=== PATIENT | male | born 1990 | race American Indian/Alaskan Native ===

== ENCOUNTER 2017-04-13 00:55 | Emergency (ER) | payer BC, OTHER ==
--- NOTE | 2017-04-13 01:37 | C.PDOC ---
History Of Present Illness 26 yo male come in for evaluation of left middle finger pain over PIPJ with some swelling developed for past 1.5-2 months. Pt reports, pain is localized and worse on Left middle finger movement. Pt unable to recall injury, denies weakness, deformity, sensory or vascular deficits to painful hand. Ambulate to ED for evaluation, not in any apparent distress. Time Seen by Provider: 04/13/17 00:57 Chief Complaint (Nursing): Upper Extremity Problem/Injury History Per: Patient Onset/Duration Of Symptoms: Gradual Past Medical History Reviewed: Historical Data, Nursing Documentation, Vital Signs Vital Signs: Last Vital Signs Temp 99 F 04/13/17 01:17 Pulse 85 04/13/17 01:17 Resp 20 04/13/17 01:17 BP 117/65 04/13/17 01:17 Pulse Ox 99 04/13/17 01:44 - Medical History PMH: No Chronic Diseases Family History: States: Unknown Family Hx - Social History Hx Tobacco Use: No Hx Alcohol Use: Yes Hx Substance Use: No - Immunization History Hx Tetanus Toxoid Vaccination: No Hx Influenza Vaccination: No Hx Pneumococcal Vaccination: No Review Of Systems Except As Marked, All Systems Reviewed And Found Negative. Constitutional: Negative for: Fever, Chills Musculoskeletal: Positive for: Foot Pain (Left 3rd finger pain) Skin: Negative for: Rash, Bruising Neurological: Negative for: Weakness, Numbness Physical Exam - Physical Exam Appears: Well, Non-toxic, No Acute Distress Skin: Normal Color, Warm, No Rash, No Ecchymosis Extremity: Normal ROM (left hand), Tenderness (ove rleft 3rd PIPJ with mild diffuse edema left 3rd middle phalanx. No erythema, no palpable deformity.), Capillary Refill (less than 2sec to left hand), No Deformity Neurological/Psych: Oriented x3, Normal Speech, Normal Motor, Normal Sensation, Normal Reflexes ED Course And Treatment O2 Sat by Pulse Oximetry: 99 - Other Rad Left 3rd finger X-Ray: Interpreted by Me, Viewed By Me Interpretation: (-) acute fx or dislocation Progress Note: On re-eval, aferile, hemodynamicaly stable. left hand; exam c/w left middle finger arthralgia at PIPJ. No deformity. FAROM. Pt advised. ref. to f/u with Hand in 2-3 days for re-eval. rfeturn if any new changes. Disposition Counseled Patient/Family Regarding: Studies Performed, Diagnosis, Need For Followup - Disposition Referrals: [facility] at [facility] [Outside] Disposition: HOME/ ROUTINE Disposition Time: 01:44 Condition: STABLE Instructions: Finger Sprain (ED) Forms: [employer] (Gambian) - Clinical Impression Clinical Impression: Sprain, finger
[2017-04-13 02:29] VITALS: BP 110/75; PULSE 84; RESP 22; TEMP 98.6; O2SAT 98
--- NOTE | 2017-04-13 09:48 | RAD ---
PROCEDURE: Left middle finger radiographs. HISTORY: pain COMPARISON: None. TECHNIQUE: AP radiograph of the left hand, as well as spot oblique and lateral images of left middle finger were obtained. FINDINGS: LEFT MIDDLE FINGER: Left middle finger normal, without fracture of focal lesion. Remainder of the left hand (as seen on the AP view) is grossly unremarkable. JOINTS: Normal. SOFT TISSUES: Normal. OTHER FINDINGS: None. IMPRESSION: Normal left middle finger radiographs. If symptoms persist or occult fracture suspected clinically consider followup radiographs 5-10 days as most fractures should become radiographically evident this timeframe.
== END 2017-04-13 02:33 | disposition home or self-care (01) ==
LOC: C.ER 00:55
DX: S63.613A Unspecified sprain of left middle finger, initial encounter (principal); X58.XXXA Exposure to other specified factors, initial encounter

== ENCOUNTER 2017-05-27 09:44 | Emergency (ER) | payer BC, OTHER ==
[2017-05-27 09:56] VITALS: TEMP 97.9
--- NOTE | 2017-05-27 10:27 | C.PDOC ---
History Of Present Illness 26 y/o male, otherwise well, presents to the emergency department complaining of a sore throat and mild cough since Tuesday. No fevers, chills, or other complaints. HPI: Influenza Time Seen by Provider: 05/27/17 09:56 Chief Complaint: ENT Problem Chief Complaint (Provider): ENT Problem History Per: Patient Exam Limitations: no limitations Onset/Duration Of Symptoms: Days (x6) Past Medical History Reviewed: Historical Data, Nursing Documentation, Vital Signs Vital Signs: Last Vital Signs Temp 97.9 F 05/27/17 09:53 Pulse 88 05/27/17 09:53 Resp 16 05/27/17 09:53 BP 118/75 05/27/17 09:53 Pulse Ox 97 05/27/17 09:53 - Medical History PMH: No Chronic Diseases Surgical History: No Surg Hx Family History: States: Unknown Family Hx - Social History Hx Tobacco Use: No Hx Alcohol Use: Yes Hx Substance Use: No - Immunization History Hx Tetanus Toxoid Vaccination: No Hx Influenza Vaccination: No Hx Pneumococcal Vaccination: No Review Of Systems Except As Marked, All Systems Reviewed And Found Negative. Constitutional: Negative for: Fever, Chills ENT: Positive for: Throat Pain Cardiovascular: Negative for: Chest Pain Respiratory: Positive for: Cough. Negative for: Shortness of Breath Gastrointestinal: Negative for: Vomiting Physical Exam - Physical Exam Appears: Non-toxic, No Acute Distress Skin: Normal Color, Warm, Dry Head: Atraumatic, Normacephalic Eye(s): bilateral: Normal Inspection, PERRL, EOMI Nose: Normal Oral Mucosa: Moist Throat: Erythema, No Exudate Neck: Normal ROM, Supple Chest: Symmetrical Cardiovascular: Rhythm Regular, No Murmur Respiratory: Normal Breath Sounds, No Rales, No Rhonchi, No Wheezing Neurological/Psych: Oriented x3, Normal Speech Medical Decision Making Medical Decision Making: Time: 10:20 Initial Plan: --flu swab --rapid strep test --Chest X-Ray suspect viral syndomre- > 4 days of symptoms little benefit to tamiflu. no unilateral swelling hot pototo voice. - ECG O2 Sat by Pulse Oximetry: 97 (RA) Pulse Ox Interpretation: Normal Disposition - Disposition Referrals: [facility] [Outside] [facility] [Outside] [facility] [[facility]] Disposition: HOME/ ROUTINE Disposition Time: 11:04 Condition: STABLE Additional Instructions: please follow up with your doctor. return to er with worsening symptoms or concerns. Prescriptions: Ibuprofen [Motrin Tab] 400 mg PO Q6 PRN #20 tab PRN Reason: Pain, Mild (1-3) Instructions: Viral Syndrome (DC) Forms: [employer] (Urdu) - Clinical Impression Clinical Impression: Acute pharyngitis - Scribe Statement The provider has reviewed the documentation as recorded by the Scribe (Cheryl Franz) Provider Attestation: All medical record entries made by the Scribe were at my direction and personally dictated by me. I have reviewed the chart and agree that the record accurately reflects my personal performance of the history, physical exam, medical decision making, and the department course for this patient. I have also personally directed, reviewed, and agree with the discharge instructions and disposition.
--- NOTE | 2017-05-27 10:34 | RAD ---
HISTORY: cough COMPARISON: No prior. TECHNIQUE: Chest PA and lateral FINDINGS: LUNGS: No active pulmonary disease. PLEURA: No significant pleural effusion identified. No pneumothorax apparent. CARDIOVASCULAR: Normal. OSSEOUS STRUCTURES: No significant abnormalities. VISUALIZED UPPER ABDOMEN: Normal. OTHER FINDINGS: None. IMPRESSION: No active disease.
[2017-05-27 10:55] LABS: INFLUENZA A B NEGATIVE FOR FLU A/B (NEGATIVE)
[2017-05-27 11:13] VITALS: BP 112/78; PULSE 79; RESP 20; O2SAT 98
== END 2017-05-27 11:14 | disposition home or self-care (01) ==
LOC: C.ER 09:44
DX: J02.9 Acute pharyngitis, unspecified (principal)

== ENCOUNTER 2017-07-01 03:19 | Emergency (ER) | payer BC, OTHER ==
[2017-07-01 03:41] VITALS: RESP 20; O2SAT 98
[2017-07-01] MEDS ORDERED: Lidocaine 2% Jelly (Uro-Jet) TOP ONE (03:49)
--- NOTE | 2017-07-01 03:51 | C.PDOC ---
History Of Present Illness 26 year old male presents to the ER with a complaint of painful lump to his rectal area since yesterday, associated with bright red blood with bowel movements. Patient reports he has pain with sitting, he has tried using hemorrhoid cream with no relief. Denies abdominal pain or other symptoms. Time Seen by Provider: 07/01/17 03:39 Chief Complaint (Nursing): GI Problem History Per: Patient History/Exam Limitations: no limitations Onset/Duration Of Symptoms: Days Current Symptoms Are (Timing): Still Present Recent travel outside of the [place]: No Past Medical History Reviewed: Historical Data, Nursing Documentation, Vital Signs Vital Signs: Last Vital Signs Temp 98 F 07/01/17 04:21 Pulse 78 07/01/17 04:21 Resp 20 07/01/17 04:21 BP 120/79 07/01/17 04:21 Pulse Ox 98 07/01/17 04:21 Family History: States: Unknown Family Hx - Social History Hx Tobacco Use: No Hx Alcohol Use: Yes Hx Substance Use: No - Immunization History Hx Tetanus Toxoid Vaccination: No Hx Influenza Vaccination: No Hx Pneumococcal Vaccination: No Review Of Systems Constitutional: Negative for: Fever, Chills Gastrointestinal: Positive for: Rectal Pain. Negative for: Abdominal Pain Physical Exam - Physical Exam Appears: Non-toxic, No Acute Distress Skin: Normal Color, Warm, Dry Head: Atraumatic, Normacephalic Eye(s): bilateral: Normal Inspection, EOMI Neck: Normal ROM Chest: Symmetrical Gastrointestinal/Abdominal: Soft, No Tenderness Rectal: Hemorrhoids (External nonthombosed), Other (Anal fissure at 1200) Extremity: Bilateral: Atraumatic Neurological/Psych: Oriented x3, Normal Speech, Other (No focal deficits) ED Course And Treatment O2 Sat by Pulse Oximetry: 98 (room air) Pulse Ox Interpretation: Normal Medical Decision Making Medical Decision Making: Motrin administered and lidocaine gel applied. Patient advised to continue using hemorrhoid cream, do sitz baths at home, and follow up with PMD for further evaluation. Disposition Counseled Patient/Family Regarding: Diagnosis, Need For Followup, Rx Given - Disposition Disposition: HOME/ ROUTINE Disposition Time: 04:20 Condition: STABLE Additional Instructions: Take warm baths to soothe and relax rectal muscles Take Ibuprofen for pain Apply nitro ointment to anus for one week, caution can affect blood pressure and cause dizziness Apply lidocaine as needed for pain Apply hemorrhoid cream daily Prescriptions: Docusate [Colace] 100 mg PO TID PRN #30 cap PRN Reason: Constipation Hard Fat/Phenylephrine [place] [Anusol Suppository] 1 sup RC DAILY #12 sup Ibuprofen [Motrin] 600 mg PO Q8 #30 tab Lidocaine 2% Gel [Xylocaine 2% (Uro-Jet)] 1 appl TP DAILY 7 Days #1 gel Nitroglycerin [Rectiv] 30 gm RC Q12 7 Days #1 oint...g. Instructions: Hemorrhoids (DC), Anal Fissure (DC), How to Do a Sitz Bath Forms: [employer] (Qatari) - POA Present On Arrival: None - Clinical Impression Clinical Impression: Hemorrhoids, Anal fissure - PA / TRAINING AND QUALITY MANAGER / Resident Statement MD/DO has reviewed & agrees with the documentation as recorded. - Scribe Statement The provider has reviewed the documentation as recorded by the Scribe Fabrizio Carter All medical record entries made by the Scribe were at my direction and personally dictated by me. I have reviewed the chart and agree that the record accurately reflects my personal performance of the history, physical exam, medical decision making, and the department course for this patient. I have also personally directed, reviewed, and agree with the discharge instructions and disposition.
[2017-07-01] MEDS ORDERED: Lidocaine 2% Jelly (Uro-Jet) ONE (04:07)
[2017-07-01 04:22] VITALS: BP 120/79; PULSE 78; TEMP 98
== END 2017-07-01 05:01 | disposition home or self-care (01) ==
LOC: C.ER 03:19
DX: K60.2 Anal fissure, unspecified (principal); K64.4 Residual hemorrhoidal skin tags

== ENCOUNTER 2018-04-28 08:09 | Emergency (ER) | payer OTHER, BC ==
[2018-04-28 08:13] VITALS: BP 120/82; PULSE 92; RESP 20; TEMP 98.6; O2SAT 100
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
--- NOTE | 2018-04-28 08:58 | C.PDOC ---
Time Seen by Provider: 04/28/18 08:19 Chief Complaint (Nursing): Lower Extremity Problem/Injury Past Medical History Vital Signs: Last Vital Signs Temp 98.6 F 04/28/18 08:11 Pulse 92 H 04/28/18 08:11 Resp 20 04/28/18 08:11 BP 120/82 04/28/18 08:11 Pulse Ox 100 04/28/18 08:11 Family History: States: Unknown Family Hx - Social History Hx Tobacco Use: No Hx Alcohol Use: Yes Hx Substance Use: No - Immunization History Hx Tetanus Toxoid Vaccination: No Hx Influenza Vaccination: No Hx Pneumococcal Vaccination: No ED Course And Treatment O2 Sat by Pulse Oximetry: 100 Disposition - Disposition
== END 2018-04-28 09:00 | disposition home or self-care (01) ==
LOC: C.ER 08:09
DX: S86.911A Strain of unspecified muscle(s) and tendon(s) at lower leg level, right leg, initial encounter (principal); V49.9XXA Car occupant (driver) (passenger) injured in unspecified traffic accident, initial encounter